=== PATIENT | female | born 1980 | race Caucasian/White ===

== ENCOUNTER 2021-08-17 12:44 | Outpatient (CLI) | payer BC | END 2021-08-17 12:45 | disposition home or self-care (01) | LOC: CSHULT 12:44 | PROVIDERS: ATTEND Obstetrics & Gynecology | DX: N63.11 Unspecified lump in the right breast, upper outer quadrant (principal); N63.15 Unspecified lump in the right breast, overlapping quadrants; N60.01 Solitary cyst of right breast ==

== ENCOUNTER 2022-02-22 09:33 | Outpatient (CLI) | payer BC, OTHER | END 2022-02-22 09:34 | disposition home or self-care (01) | LOC: CSHMAMMO 09:33 | PROVIDERS: ATTEND Obstetrics & Gynecology | DX: N63.10 Unspecified lump in the right breast, unspecified quadrant (principal) | CPT/HCPCS: G0279 ==

== ENCOUNTER 2023-08-23 09:05 | Outpatient (CLI) | payer OTHER | END 2023-08-23 09:06 | disposition home or self-care (01) | LOC: CSHULT 09:05 | PROVIDERS: ATTEND Obstetrics & Gynecology | DX: N60.01 Solitary cyst of right breast (principal) ==